=== PATIENT | male | born 1950 | race Caucasian/White ===

== ENCOUNTER 2020-08-21 12:15 | Emergency (ER) | payer MEDICARE ==
[2020-08-21] MEDS ORDERED: Ketorolac 60 MG/2 ML SDV IM ONE (13:14)
--- NOTE | 2020-08-21 13:19 | EDM.PDOC ---
ED HPI GENERAL MEDICAL PROBLEM - General Chief Complaint: Genitourinary Problem Stated Complaint: L SIDE PAIN, FEVER Time Seen by Provider: 08/21/20 13:05 Source of Information: Reports: Patient, Old Records History Limitations: Reports: No Limitations - History of Present Illness INITIAL COMMENTS - FREE TEXT/NARRATIVE: 70 yo male presents with a couple days of progressive L testicle swelling and redness. He says it hurts to urinate. He believes he had a fever today at home. He took 2 aspirin more than 4 hrs ago for his sx's. Onset: Gradual Onset Date: 08/20/20 Duration: Day(s): (1+), Getting Worse Location: Reports: Pelvis Quality: Reports: Ache Severity: Moderate Improves with: Reports: Rest Worsens with: Reports: Movement Context: Reports: Other (See HPI) Associated Symptoms: Reports: Fever/Chills, Other (mild dysuria). Denies: Diaphoresis, Nausea/Vomiting Treatments [employer]ING [employer]: Reports: Aspirin (more than 4 hrs ago) - Related Data Allergies Allergy/AdvReac Type Severity Reaction Status Date / Time No Known Allergies Allergy Verified 08/21/20 12:52 Home Meds: Home Meds Acetaminophen/HYDROcodone [Dawson 325-5 MG] 1 - 2 tab PO Q6H PRN #14 tab 08/21/20 [Rx] Ciprofloxacin HCl [Cipro] 500 mg PO BID #15 tablet 08/21/20 [Rx] Tamsulosin [Tamsulosin 24 Hr] 0.4 mg PO BEDTIME #30 cap.er 08/21/20 [Rx] Past Medical History - Past Health History Medical/Surgical History: Denies Medical/Surgical History Social & Family History - Tobacco Use Tobacco Use Status *Q: Current Every Day Tobacco User Years of Tobacco use: 40 Packs/Tins Daily: 1 ED ROS GENERAL - Review of Systems Review Of Systems: See Below Constitutional: Reports: Fever, Malaise HEENT: Reports: No Symptoms Respiratory: Reports: No Symptoms Cardiovascular: Reports: No Symptoms GI/Abdominal: Reports: No Symptoms : Reports: Other (L testicle pain and redness with some swelling) Skin: Reports: Erythema (L hemiscrotum) ED EXAM, RENAL/ - Physical Exam Exam: See Below Exam Limited By: No Limitations General Appearance: Alert, WD/WN, No Apparent Distress Eye Exam: Bilateral Eye: Normal Inspection Ears: Normal External Exam, Normal Canal, Hearing Grossly Normal Nose: Normal Inspection, No Blood Throat/Mouth: Normal Inspection, Normal Lips, Normal Oropharynx, Normal Voice, No Airway Compromise Head: Atraumatic, Normocephalic Neck: Normal Inspection Respiratory/Chest: No Respiratory Distress, Rhonchi (scattered). No: Wheezing, Accessory Muscle Use, Prolonged Expiration Cardiovascular: Regular Rate, Rhythm, No Edema GI/Abdominal: Normal Bowel Sounds, Soft, Non-Tender, No Distention, Other (lymph node tender L inguinal area) (Male) Exam: Scrotum Tenderness (L), Testicular Tenderness (L), Other (L testicle enlarged) Back Exam: Normal Inspection. No: CVA Tenderness (R), CVA Tenderness (L) Extremities: Normal Inspection, Normal Range of Motion, Non-Tender, No Pedal Edema Neurological: Alert, Oriented, CN II-XII Intact, Normal Cognition, No Motor/Sensory Deficits Psychiatric: Normal Affect, Normal Mood Skin Exam: Warm, Dry, Intact, No Rash, Erythema (L scrotum) Course - Vital Signs Last Recorded V/S: Last Vital Signs Temp 36.7 C 08/21/20 12:56 Pulse 93 08/21/20 12:56 Resp 18 08/21/20 12:56 BP 99/65 08/21/20 12:56 Pulse Ox 96 08/21/20 12:56 - Orders/Labs/Meds Orders: Active Orders 24 hr Category Date Time Status Bladder Scan [RC] ASDIRECTED Care 08/21/20 15:07 Active Almodovar Catheter Insertion [Insert Urinary Catheter] [OM. Care 08/21/20 15:15 Ordered PC] Q24H Labs: Laboratory Tests 08/21/20 08/21/20 08/21/20 Range/Units 13:14 13:40 15:23 WBC 33.2 H* (4.5-11.0) K/uL RBC 4.45 (4.30-5.90) M/uL Hgb 14.6 (12.0-15.0) g/dL Hct 42.5 (40.0-54.0) % MCV 96 (80-98) fL MCH 33 H (27-31) pg MCHC 34 (32-36) % Plt Count 229 (150-400) K/uL Neut % (Auto) 93 H (36-66) % Lymph % (Auto) 2 L (24-44) % [place] % (Auto) 5 (2-6) % Eos % (Auto) 0 L (2-4) % Baso % (Auto) 0 (0-1) % Sodium 134 L (140-148) mmol/L Potassium 4.1 (3.6-5.2) mmol/L Chloride 98 L (100-108) mmol/L Carbon Dioxide 22 (21-32) mmol/L Anion Gap 18.1 H (5.0-14.0) mmol/L BUN 19 H (7-18) mg/dL Creatinine 1.6 H (0.8-1.3) mg/dL Est Cr Clr Drug Dosing 46.13 mL/min Estimated GFR (MDRD) 43 L (>60) Glucose 124 H (74-106) mg/dL Calcium 8.8 (8.5-10.1) mg/dL C-Reactive Protein 3.33 H (0.0-0.3) mg/dL Urine Color (YELLOW) Urine Appearance (CLEAR) Urine pH (5.0-8.0) Ur Specific [place] (1.008-1.030) Urine Protein (NEGATIVE) mg/dL Urine Glucose (UA) (NEGATIVE) mg/dL Urine Ketones (NEGATIVE) mg/dL Urine Occult Blood (NEGATIVE) Urine Nitrite (NEGATIVE) Urine Bilirubin (NEGATIVE) Urine Urobilinogen (0.2-1.0) EU/dL Ur Leukocyte Esterase (NEGATIVE) Urine RBC (0-5) Urine WBC (0-5) Ur Epithelial Cells Urine Bacteria Urine Mucus 08/21/20 Range/Units 15:24 WBC (4.5-11.0) K/uL RBC (4.30-5.90) M/uL Hgb (12.0-15.0) g/dL Hct (40.0-54.0) % MCV (80-98) fL MCH (27-31) pg MCHC (32-36) % Plt Count (150-400) K/uL Neut % (Auto) (36-66) % Lymph % (Auto) (24-44) % [place] % (Auto) (2-6) % Eos % (Auto) (2-4) % Baso % (Auto) (0-1) % Sodium (140-148) mmol/L Potassium (3.6-5.2) mmol/L Chloride (100-108) mmol/L Carbon Dioxide (21-32) mmol/L Anion Gap (5.0-14.0) mmol/L BUN (7-18) mg/dL Creatinine (0.8-1.3) mg/dL Est Cr Clr Drug Dosing mL/min Estimated GFR (MDRD) (>60) Glucose (74-106) mg/dL Calcium (8.5-10.1) mg/dL C-Reactive Protein (0.0-0.3) mg/dL Urine Color Yellow (YELLOW) Urine Appearance Clear (CLEAR) Urine pH 5.5 (5.0-8.0) Ur Specific [place] 1.025 (1.008-1.030) Urine Protein Negative (NEGATIVE) mg/dL Urine Glucose (UA) Negative (NEGATIVE) mg/dL Urine Ketones Negative (NEGATIVE) mg/dL Urine Occult Blood Trace-lysed H (NEGATIVE) Urine Nitrite Negative (NEGATIVE) Urine Bilirubin Negative (NEGATIVE) Urine Urobilinogen 0.2 (0.2-1.0) EU/dL Ur Leukocyte Esterase Negative (NEGATIVE) Urine RBC Not seen (0-5) Urine WBC 5-10 H (0-5) Ur Epithelial Cells Not seen Urine Bacteria Not seen Urine Mucus Many Meds: Medications Discontinued Medications Generic Name Dose Route Start Last Admin Trade Name Abrahamq PRN Reason Stop Dose Admin Acetaminophen 1,000 mg 08/21/20 14:43 08/21/20 14:47 Tylenol Extra Strength PO 08/21/20 14:44 1,000 mg ONETIME ONE Administration Ciprofloxacin 500 mg 08/21/20 15:48 Ciprofloxacin Hcl PO 08/21/20 15:49 ONETIME ONE Ketorolac Tromethamine 60 mg 08/21/20 13:14 08/21/20 13:32 Toradol IM 08/21/20 13:15 60 mg ONETIME ONE Administration Lidocaine HCl 10 ml 08/21/20 15:08 Xylocaine 2% Jelly MUCMEM 08/21/20 15:09 ONETIME ONE Tamsulosin HCl 0.4 mg 08/21/20 15:08 08/21/20 15:16 Flomax PO 08/21/20 15:09 0.4 mg ONETIME ONE Administration - Re-Assessments/Exams Free Text/Narrative Re-Assessment/Exam: 08/21/20 15:23 Bladder scanned for >600 ml due to not being able to provider a urine specimen after several hrs and several glasses of water. He did manage to void 150 ml after we discussed catheterization. Flomax was given for urinary obstruction. Departure - Departure Time of Disposition: 16:00 Disposition: Home, Self-Care 01 Condition: Fair Clinical Impression: Orchitis, Neutrophilic leukocytosis BPH (benign prostatic hyperplasia) Qualifiers: Lower urinary tract symptom presence: symptoms present Lower urinary tract symptom detail: incomplete bladder emptying Qualified Code(s): N40.1 - Benign prostatic hyperplasia with lower urinary tract symptoms; R39.14 - Feeling of incomplete bladder emptying - Discharge Information *PRESCRIPTION DRUG MONITORING PROGRAM REVIEWED*: No *COPY OF PRESCRIPTION DRUG MONITORING REPORT IN PATIENT ALEXANDRA: No Prescriptions: Ciprofloxacin HCl [Cipro] 500 mg PO BID #15 tablet Tamsulosin [Tamsulosin 24 Hr] 0.4 mg PO BEDTIME #30 cap.er Acetaminophen/HYDROcodone [Dawson 325-5 MG] 1 - 2 tab PO Q6H PRN #14 tab PRN Reason: Pain Referrals: PCP,None [Primary Care Provider] - Forms: ED Department Discharge Additional Instructions: Use Flomax at bedtime, next dose Sunday night. Take ciprofloxacin every 12 hrs, first dose given before discharge in the ER. For pain use either acetaminophen and/or ibuprofen. You may substitute Dawson for acetaminophen if added pain control is needed, next dose of either acetaminophen or Dawson after 9 pm tonight. Next dose of ibuprofen after 8 pm tonight. Drink ample fluids. You need to have your CBC, blood count, repeated next week in the clinic due to how unusually high it was today. Return if worse. Sepsis Event Note (ED) - Evaluation Sepsis Screening Result: No Definite Risk - Focused Exam Vital Signs: Vital Signs Temp Pulse Resp BP Pulse Ox 08/21/20 12:56 36.7 C 93 18 99/65 96 08/21/20 12:46 36.7 C 93 18 99/65 96 - My Orders Last 24 Hours: My Active Orders 08/21/20 15:07 Bladder Scan [RC] ASDIRECTED 08/21/20 15:15 Almodovar Catheter Insertion [Insert Urinary Catheter] [OM.PC] Q24H - Assessment/Plan Last 24 Hours: My Active Orders 08/21/20 15:07 Bladder Scan [RC] ASDIRECTED 08/21/20 15:15 Almodovar Catheter Insertion [Insert Urinary Catheter] [OM.PC] Q24H
[2020-08-21] MEDS ORDERED: Acetaminophen 500 MG Tab PO ONE (14:43)
[2020-08-21] MEDS ORDERED: Tamsulosin 0.4 MG Cap.ER PO ONE (15:08)
[2020-08-21] MEDS ORDERED: Lidocaine 2% Jelly 10 ML Urojet MUCMEM ONE (15:08)
[2020-08-21] MEDS ORDERED: Ciprofloxacin 500 MG Tab PO ONE (15:48)
== END 2020-08-21 16:18 | disposition home or self-care (01) ==
LOC: JP.ED 12:15
DX: N40.1 Benign prostatic hyperplasia with lower urinary tract symptoms (principal); R39.14 Feeling of incomplete bladder emptying; N45.2 Orchitis; D72.828 Other elevated white blood cell count; F17.210 Nicotine dependence, cigarettes, uncomplicated; Z79.899 Other long term (current) drug therapy
CPT/HCPCS: 36415; 80048; 81001; 85025; 86140; 96372; 99284; A9270; J1885; 99283